=== PATIENT | male | born 1965 | race Two or more races ===

== ENCOUNTER 2022-08-22 08:07 | Inpatient (IN) | payer OTHER ==
[~2022-08-22] VITALS: Ht 175.3 cm; Wt 79.4 kg
[2022-08-22] MEDS ORDERED: CIPRO500 MG (08:22)
--- NOTE | 2022-08-22 08:33 | NUR ---
PTE ALERTA YV ORIENTADO EN LUIS OLENA ESFERAS, EL CUAL REFIERE MOLESTIA ABDOMINAL Y GASES QUE LE COMENZARON EN LA MADRUGADA DE HOY. PTE INDICA QUE LOS GASES LE PROVOCAN MOLESTIA EN EL PECHO, SE REALIZA EKG Y SE PRESENTA A DION GUTIERREZ. SE UBICA EN AREA DE OBSERVACION.
--- NOTE | 2022-08-22 09:12 | NUR ---
A EVALUA PTE. SE EDUCA SOBRE TRATAMIENTO MEDICO ORDENADO,REFIERE COMPRENDER. SE COLECTAN MUESTRAS DE LABORATORIO BAJO MEDIDAS ASEPTICAS. SE ADMINISTRAN MEDICAMENTOS KEHINDE ORDEN MEDICA. SE COORDINA SONOGRAMA. PENDIENTE RE-EVALUACION MEDICA.
--- NOTE | 2022-08-22 12:42 | NUR ---
A RE-EVALUA PTE. SE EDUCA SOBRE TX MEDICO, REFIERE COMPRENDER. SE REALIZAN MUESTRAS DE LABORATORIO BAJO MEDIDAS ASEPTICAS. SE ADMINISTRA MEDICAMENTO KEHINDE ORDEN MEDICA. PENDIENTE CONSULTA CON DR.RIVERA KENNEDY
--- NOTE | 2022-08-22 15:05 | NUR ---
SE RECIBE PTE MASCULINO ALERTA Y ORIENTADO EN [place] ESFERAS EN COMPANIA DE FAMILIAR DEL TURNO ANTERIOR. CON BUEN PATRON RESPIRATORIO Y SIN QUEJA DE DOLOR AL MOMENTO. VENOPUNCION PATENTE, DARINEL DE EDEMA Y ERITEMA EN H/L. PTE EN CAMA NIVEL MAS BAJO CON BARANDAS ELEVADAS Y FRENOS COLOCADOS POR SEGURIDAD. PENDIENTE CONSULTA CON MEDICINA INTERNA CON YA NOTIFICADA.
[2022-08-26] MEDS ORDERED: AMOX1TAB5 PO (09:17)
[2022-08-26] MEDS ORDERED: INTESTINEX680 M2 PO (09:17)
== END 2022-08-26 09:56 | disposition home or self-care (01) | DRG 418 ==
LOC: ER 08:07 → MEDI 17:43
PROVIDERS: Surgery; ADMIT Internal Medicine; ATTEND Internal Medicine
PROC: BW40ZZZ Ultrasonography of Abdomen (ICD-10-PCS; 2022-08-22)
PROC: 0WQF4ZZ Repair Abdominal Wall, Percutaneous Endoscopic Approach (ICD-10-PCS; 2022-08-24)
PROC: 0FT44ZZ Resection of Gallbladder, Percutaneous Endoscopic Approach (ICD-10-PCS; principal; 2022-08-24 09:00)
DX: K80.00 Calculus of gallbladder with acute cholecystitis without obstruction (principal); J95.89 Other postprocedural complications and disorders of respiratory system, not elsewhere classified; J98.11 Atelectasis; K43.9 Ventral hernia without obstruction or gangrene; K82.A1 Gangrene of gallbladder in cholecystitis; R10.11 Right upper quadrant pain; D72.829 Elevated white blood cell count, unspecified; Z20.822 Contact with and (suspected) exposure to COVID-19